=== PATIENT | female | born 1975 | race Caucasian/White ===

== ENCOUNTER → 2020-12-11 | Outpatient (CLI) | payer BC, SELFPAY ==
[~2020-12-11] MED LIST: CYCLOBENZAPRINE5 MG PO; MOBIC15 MG PO
== END ==
LOC: RAD 15:11
DX: M54.9 Dorsalgia, unspecified (principal); M47.814 Spondylosis without myelopathy or radiculopathy, thoracic region
CPT/HCPCS: 72070

== ENCOUNTER → 2020-12-12 | Outpatient (CLI) | payer BC ==
[2020-12-12 11:59] LABS: HEMOGLOBIN 14.7 gm/dl (12.3-15.3); RED BLOOD COUNT 4.42 M/UL (4.00-5.10); WHITE BLOOD COUNT 5.6 K/UL (4.5-11.0)
[2020-12-12 12:22] LABS: BUN/CREATININE RATIO 15 (0-10)
== END ==
LOC: LAB 10:27
PROVIDERS: Internal Medicine
DX: D89.89 Other specified disorders involving the immune mechanism, not elsewhere classified (principal); R76.8 Other specified abnormal immunological findings in serum; M25.50 Pain in unspecified joint; R23.0 Cyanosis; R42 Dizziness and giddiness; R53.83 Other fatigue
CPT/HCPCS: 36415; 80053; 84439; 84443; 85025; 85652; 86140; 86156

== ENCOUNTER → 2021-01-13 | Outpatient (CLI) | payer BC, SELFPAY | LOC: MRI 08:29 | DX: G44.52 New daily persistent headache (NDPH) (principal); R07.89 Other chest pain | CPT/HCPCS: 70544; 70553; A9577 ==

== ENCOUNTER → 2021-01-17 | Outpatient (CLI) | payer BC, SELFPAY | LOC: CT 10:23 | DX: R07.89 Other chest pain (principal); K76.0 Fatty (change of) liver, not elsewhere classified | CPT/HCPCS: 71270; Q9967 ==

== ENCOUNTER 2021-01-30 15:38 | Emergency (ER) | payer BC, OTHER ==
[2021-01-30 17:24] LABS: HEMOGLOBIN 14.6 gm/dl (12.3-15.3); RED BLOOD COUNT 4.3 M/UL (4.00-5.10); WHITE BLOOD COUNT 8.9 K/UL (4.5-11.0)
[2021-01-30 18:14] LABS: BUN/CREATININE RATIO 11 (0-10)
[2021-01-30] MEDS ORDERED: MOBIC15 MG PO (21:50)
[2021-01-30] MEDS ORDERED: CYCLOBENZAPRINE5 MG PO (21:50)
== END 2021-01-30 22:00 | disposition home or self-care (01) ==
LOC: ER1 15:38
PROVIDERS: Physician Assistant
DX: R07.89 Other chest pain (principal); M06.9 Rheumatoid arthritis, unspecified; Z90.49 Acquired absence of other specified parts of digestive tract; Z88.0 Allergy status to penicillin; Z88.2 Allergy status to sulfonamides; Z88.8 Allergy status to other drugs, medicaments and biological substances; Z90.89 Acquired absence of other organs
CPT/HCPCS: 71045; 80053; 82550; 82553; 83874; 84484; 85025; 85379; 85652; 86140; 93005; 96374; 99285; J1885

== ENCOUNTER → 2021-03-05 | Outpatient (CLI) | payer BC, SELFPAY | LOC: ECHO 11:00 | DX: I31.3 Pericardial effusion (noninflammatory) (principal); I07.1 Rheumatic tricuspid insufficiency | CPT/HCPCS: ECHO; 93306 ==

== ENCOUNTER → 2021-03-13 | Outpatient (CLI) | payer BC, OTHER | LOC: HEART 5 11:00 | DX: R07.9 Chest pain, unspecified (principal) ==

== ENCOUNTER 2021-10-10 18:14 | Emergency (ER) | payer BC ==
[2021-10-10 20:20] LABS: HEMOGLOBIN 16.7 gm/dl (12.3-15.3); RED BLOOD COUNT 4.93 M/UL (4.00-5.10)
[2021-10-10 20:57] LABS: BUN/CREATININE RATIO 20 (0-10)
[2021-10-11] MEDS ORDERED: PROVENTIL HFA6.7 GM INH (00:17)
== END 2021-10-11 02:22 | disposition home or self-care (01) ==
LOC: ER1 18:14
PROVIDERS: Physician Assistant
DX: U07.1 COVID-19 (principal); F17.210 Nicotine dependence, cigarettes, uncomplicated; Z88.2 Allergy status to sulfonamides
CPT/HCPCS: 71045; 80053; 82550; 82553; 84484; 85025; 93005; 99284

== ENCOUNTER → 2021-12-12 | Outpatient (CLI) | payer BC ==
[~2021-12-12] MED LIST changes: +PROVENTIL HFA6.7 GM INH
== END ==
LOC: ECHO 12:30
DX: I31.3 Pericardial effusion (noninflammatory) (principal); R07.9 Chest pain, unspecified; R53.83 Other fatigue
CPT/HCPCS: ECHO; 93306

== ENCOUNTER → 2022-01-08 | Day surgery (SDC) | payer BC ==
[~2022-01-08] VITALS: Ht 162.6 cm; Wt 56.2 kg
[~2022-01-08] MED LIST changes: +CO Q-1010 MG PO; +FISH OIL PO; +HYDROXYZINE HCL25 MG PO; +MULTI-VITAMIN1 EACH PO; +PROGESTERONE; +TESTOSTERONE; +VALACYCLOVIR1000 MG PO; +VENLAFAXINE HC150 MG PO
== END | disposition home or self-care (01) ==
LOC: OR 06:42
DX: Z12.11 Encounter for screening for malignant neoplasm of colon (principal); K64.0 First degree hemorrhoids; K59.09 Other constipation; F41.9 Anxiety disorder, unspecified; F32.A Depression, unspecified; Z79.899 Other long term (current) drug therapy; Z88.0 Allergy status to penicillin; Z88.1 Allergy status to other antibiotic agents; Z88.2 Allergy status to sulfonamides; Z88.8 Allergy status to other drugs, medicaments and biological substances
CPT/HCPCS: J2250; J2704